=== PATIENT | female | born 1965 | race Caucasian/White ===

== ENCOUNTER 2018-05-31 11:09 | Emergency (ER) | payer OTHER | END 2018-05-31 13:48 | disposition home or self-care (01) | LOC: FTE 11:09 | DX: J04.0 Acute laryngitis (principal); J40 Bronchitis, not specified as acute or chronic | CPT/HCPCS: 71045; 99283-25 ==

== ENCOUNTER 2018-09-14 12:07 | Emergency (ER) | payer OTHER ==
[2018-09-14] MEDS: KETOROLAC 30 MG INJ IM (13:28)
== END 2018-09-14 14:05 | disposition home or self-care (01) ==
LOC: FTE 14:05
DX: M54.42 Lumbago with sciatica, left side (principal)
CPT/HCPCS: 81025; 96372; 99284-25